=== PATIENT | female | born 2000 | race Two or more races ===

== ENCOUNTER 2023-10-09 17:31 | Emergency (ER) | payer MEDICAID, OTHER ==
[~2023-10-09] VITALS: Ht 162.6 cm; Wt 57.2 kg
[2023-10-09 17:40] VITALS: BP 104/75; PULSE 106; RESP 16; O2SAT 96
[2023-10-09 18:30] LABS: Urine Bacteria FEW /hpf (None Seen); Urine Blood 2+ /uL (Negative); Urine Clarity Ex.Turbid (Clear); Urine Color Light-Violet (Yellow); Urine Protein, UAD TRACE (Negative); Urine Urobilinogen Normal (Negative); Urine WBC 2811 /hpf (0 - 5); Urine WBC Clumps PRESENT /hpf (None Seen); Urine pH 5.5 (5.0-9.0)
== END 2023-10-10 04:30 | disposition left against medical advice (07) ==
LOC: ER 17:31
DX: R30.9 Painful micturition, unspecified (principal); Z53.21 Procedure and treatment not carried out due to patient leaving prior to being seen by health care provider
CPT/HCPCS: 81001; 81025